=== PATIENT | male | born 1945 | race Caucasian/White ===

== ENCOUNTER 2020-11-05 15:21 | Emergency (ER) | payer OTHER, SELFPAY ==
--- NOTE | ~2020-11-05 | XR_ITS ---
EXAMINATION: XR CHEST CLINICAL INFORMATION: Covid infection. Cough. COMPARISON: None TECHNIQUE: Frontal view of the chest was obtained. FINDINGS: The cardiac and mediastinal contours are normal. The lungs are clear. There is no pleural effusion or pneumothorax. There are degenerative changes of the spine and shoulders. XR/XR chest 1V IMPRESSION: No evidence for acute disease in the chest.
[2020-11-05 15:39] VITALS: BP 149/66; BP 150/80; PULSE 101; PULSE 106; RESP 18; TEMP 37.1; O2SAT 94; O2SAT 95
--- NOTE | 2020-11-05 15:55 | ECG_ITS ---
Test Reason : CHEST PAIN Blood Pressure : / mmHG Vent. Rate : 089 BPM Atrial Rate : 089 BPM P-R Int : 130 ms QRS Dur : 070 ms QT Int : 350 ms P-R-T Axes : 074 050 049 degrees QTc Int : 425 ms Sinus rhythm with Premature atrial complexes Otherwise normal ECG When compared with ECG of 28-SEP-2016 13:11, Premature atrial complexes are now Present Referred By: Nacho Farley Electronically Signed By:HALIMA TITUS
--- NOTE | 2020-11-05 15:58 | ED_ITS ---
HPI - General Adult General Chief complaint: Upper Respiratory Symptoms Stated complaint: +COVID,+VACC,SOB Time Seen by Provider: 11/05/20 15:26 Source: patient Mode of arrival: ambulatory Limitations: no limitations History of Present Illness HPI narrative: 75-year-old male who who is COVID positive who presents emergency department for evaluation of shortness of breath and an O2 saturation of 90% on room air. The patient states that he has been sick for approximately 1 week. He states these had fever with a temperature as high as 101? F at home. The states that he has had a cough which is productive of brown to orange thick sputum. He he has had 2-3 episodes of loose ?soupy and ?diarrheal stool the pas t 6 days. He states he has had no appetite but he has been able to drink water. States that he initially lost his sense of taste and smell but he states that this is returned. He denied chest pain or shortness of breath but he has been experiencing dyspnea on exertion. He denied myalgias or arthralgias. He states that he is having fatigue. The patient's daughters are nurses in the did check the patient's O2 saturation was 90% on room air. The family called the patient's PCP and the patient was advised to go to the emergency department for evaluation. Related Data Allergies Allergy/AdvReac Type Severity Reaction Status Date / Time No Known Allergies Allergy Verified 11/05/20 15:38 [No Known Allergies*] Review of Systems Review of Systems: Yes all other systems are reviewed and are negative [facility] Past Medical History [facility] Narrative: Past medical history: Diabetes mellitus, stroke, kidney stones, COVID-19 positive prior to today's ED visit. Past surgical history: Appendectomy, kidney stone removal. Social history: The patient denies current tobacco use. He is a former smoker and quit 30 years ago. He states the smoked for 30 years. Patient states that he drinks alcohol on Fridays only and drinks only 1 beer. He denies drug use. Medical History COVID-19 Diabetes Kidney stone Stroke Social History Social History Alcohol intake: never Patient Tobacco Use Status: Former Tobacco user Use of substances other than those prescribed or required for medical reasons: No Advance Directives: No Advance Directives Information Provided: Yes Physical Exam Vital Signs: Vital Signs: Last Vital Signs Temp 98.8 F 11/05/20 15:39 Pulse 92 11/05/20 16:24 Resp 18 11/05/20 16:24 BP 130/69 11/05/20 16:24 Pulse Ox 96 11/05/20 16:24 Body Mass Index 0.2 Const: Other: Very pleasant and cooperative male patient, does not appear to be in distress, answers all questions appropriately, oriented to person and place. HENMT: Head: Yes normal to inspection, Yes normocephalic and Yes atraumatic Ears: external ears normal General nose exam: Normal external nose present Face and sinus: Yes normal facial exam Mouth: Normal oral and palatal mucosa present Throat: Yes posterior oropharynx normal Eyes: General: appearance normal, both eyes and all related structures Pupils: Equal, round and reactive pupils present Neck: Neck: Yes normal visual inspection, Yes no lymphadenopathy, Yes trachea midline and Yes supple Chest: Chest palpation & inspection: normal inspection of the chest and normal palpation of entire chest wall Resp: Effort & Inspection: normal respiratory effort and able to speak in complete sentences Auscultation: clear to auscultation bilaterally Cardio: Rate: regular rate Rhythm: regular rhythm Heart sounds: S1 normal heart sound present, S2 normal heart sound present and no murmurs GI: Inspection: Yes normal to inspection Palpation (GI): Soft to palpation, nontender and no guarding Auscultation: normal bowel sounds : General: Yes no CVA tenderness Back/Spine/Pelvis: Back: no CVA tenderness Skin: General skin exam: no rashes or lesions noted Neuro: Cranial nerves: Yes CN's II-XII intact bilaterally and Yes Equal, round and reactive pupils present Cognition (Neuro): normal cognition Motor exam (neuro): 5/5 motor strength present throughout Extrem: General: Yes normal to inspection Psych: Appearance: grossly normal Speech and movement: Normal speech and movement present Affect: normal affect Attitude: cooperative Thought process: Normal thought process present Thought content: Normal thought co ntent present Course Course Course Narrative: 75-year-old male who has been sick for approximately 1 week, tested positive for COVID-19 2-3 days prior to evaluation. The patient has been vaccinated with the COVID-19 Pfizer with 2 shots with the 2nd shot given in April of 2020 (approximately 6 months prior). Patient's presenting symptoms are consistent with COVID-19 infection. Patient is experiencing a productive cough with dyspnea on exertion. He had O2 saturations documented in the 90% range at home. Here in the emergency department the patient's vital signs reveal tachycardia with a pulse of 101. O2 saturation was 94% on room air. I did order laboratory evaluation, urinalysis, portable chest x-ray and EKG. The patient will be treated with normal saline IV x1 L 1751: The patient's chest x-ray revealed no evidence of pneumonia. CBC was normal. Comprehensive metabolic panel did reveal an elevated glucose of 144 but the patient is a diabetic. BUN was slightly elevated at 26 suggested he might be pre renal. Patient's LDH was normal at 150. Ferritin was slightly elevated at 356. Procalcitonin was negative. At this time I do not think that the patient has a bacterial pneumonia. Also I do not think patient has COVID pneumonia. I did discuss these findings with the patient and the patient's daughter Suzanne who was a nurse. The patient will be discharged home. Medical Decision Making Lab Data Result diagrams: 11/05/20 16:05 11/05/20 16:05 Labs: Lab Results 11/05/20 11/05/20 11/05/20 Range/Units 16:05 16:05 16:05 WBC 6.9 (4.8-10.8) X10*3/uL RBC 3.90 L (4.60-5.80) X10*6/uL Hgb 12.1 L (14.0-18.0) g/dl Hct 36.8 L (42-52) % MCV 94.4 (80-98) fL MCH 31.0 (27.0-33.0) pg MCHC 32.9 (31.0-36.0) g/dl RDW 13.3 (11.0-16.0) % Plt Count 243 (160-400) X10*3/uL MPV 10.5 (9.4-12.4) fL Immature Gran % (Auto) 0.4 (0.0-0.4) % Neut % (Auto) 72.1 (45-73) % Lymph % (Auto) 10.1 L (20-40) % [place] % (Auto) 15.3 H (2-11) % Eos % (Auto) 1.8 (0-4) % Baso % (Auto) 0.3 (0-2) % Lymph # (Auto) 0.7 L (1.2-4.9) X10*3/uL [place] # (Auto) 1.1 (0.1-1.2) X10*3/uL Eos # (Auto) 0.1 (0.0-0.4) X10*3/uL Baso # (Auto) 0.0 (0.0-0.2) X10*3/uL Abs Immat Gran (auto) 0.03 (0.00-0.03) X10*3/uL Absolute Neuts (auto) 4.9 (2.0-8.3) X10*3/uL Absolute Nucleated RBC 0.000 (0.0-0.012) X10*3/uL Nucleated RBC % (auto) 0.0 (0.0-0.2) /100WBC ESR (0-15) MM/HR PT (9.9-13.0) SEC INR (0.9-1.1) APTT (24.1-38.0) SEC Sodium 136 (135-145) mmol/L Potassium 4.2 (3.3-5.1) mmol/L Chloride 99 (96-108) mmol/L Carbon Dioxide 25 (22-29) mmol/L Anion Gap 16 (12-20) BUN 26 H (9-16) mg/dL Creatinine 1.35 (0.5-1.4) mg/dL Estim Creat Clear Calc 52.6 Estimated GFR 52 Random Glucose 144 H (60-115) mg/dL Lactic Acid (0.5-2.0) mmol/L Calcium 8.6 (8.4-10.2) mg/dL Ferritin 359 H (20-250) ng/mL Total Bilirubin 0.8 (0.0-1.0) mg/dL AST 24 (5-37) U/L ALT 20 (0-40) U/L Alkaline Phosphatase 64 (39-117) U/L Lactate Dehydrogenase 150 (118-273) U/L Troponin I High Sens (<3.5-35.0) ng/L Total Protein 7.1 (6.5-8.0) g/dL Albumin 4.0 (3.5-5.0) g/dL Lipase 27 (8-78) U/L Procalcitonin 0.09 ng/mL 11/05/20 11/05/20 11/05/20 Range/Units 16:05 16:05 16:05 WBC (4.8-10.8) X10*3/uL RBC (4.60-5.80) X10*6/uL Hgb (14.0-18.0) g/dl Hct (42-52) % MCV (80-98) fL MCH (27.0-33.0) pg MCHC (31.0-36.0) g/dl RDW (11.0-16.0) % Plt Count (160-400) X10*3/uL MPV (9.4-12.4) fL Immature Gran % (Auto) (0.0-0.4) % Neut % (Auto) (45-73) % Lymph % (Auto) (20-40) % [place] % (Auto) (2-11) % Eos % (Auto) (0-4) % Baso % (Auto) (0-2) % Lymph # (Auto) (1.2-4.9) X10*3/uL [place] # (Auto) (0.1-1.2) X10*3/uL Eos # (Auto) (0.0-0.4) X10*3/uL Baso # (Auto) (0.0-0.2) X10*3/uL Abs Immat Gran (auto) (0.00-0.03) X10*3/uL Absolute Neuts (auto) (2.0-8.3) X10*3/uL Absolute Nucleated RBC (0.0-0.012) X10*3/uL Nucleated RBC % (auto) (0.0-0.2) /100WBC ESR 81 H (0-15) MM/HR PT 14.4 H (9.9-13.0) SEC INR 1.3 H (0.9-1.1) APTT 31.4 (24.1-38.0) SEC Sodium (135-145) mmol/L Potassium (3.3-5.1) mmol/L Chloride (96-108) mmol/L Carbon Dioxide (22-29) mmol/L Anion Gap (12-20) BUN (9-16) mg/dL Creatinine (0.5-1.4) mg/dL Estim Creat Clear Calc Estimated GFR Random Glucose (60-115) mg/dL Lactic Acid 1.3 (0.5-2.0) mmol/L Calcium (8.4-10.2) mg/dL Ferritin (20-250) ng/mL Total Bilirubin (0.0-1.0) mg/dL AST (5-37) U/L ALT (0-40) U/L Alkaline Phosphatase (39-117) U/L Lactate Dehydrogenase (118-273) U/L Troponin I High Sens (<3.5-35.0) ng/L Total Protein (6.5-8.0) g/dL Albumin (3.5-5.0) g/dL Lipase (8-78) U/L Procalcitonin ng/mL 11/05/20 Range/Units 16:05 WBC (4.8-10.8) X10*3/uL RBC (4.60-5.80) X10*6/uL Hgb (14.0-18.0) g/dl Hct (42-52) % MCV (80-98) fL MCH (27.0-33.0) pg MCHC (31.0-36.0) g/dl RDW (11.0-16.0) % Plt Count (160-400) X10*3/uL MPV (9.4-12.4) fL Immature Gran % (Auto) (0.0-0.4) % Neut % (Auto) (45-73) % Lymph % (Auto) (20-40) % [place] % (Auto) (2-11) % Eos % (Auto) (0-4) % Baso % (Auto) (0-2) % Lymph # (Auto) (1.2-4.9) X10*3/uL [place] # (Auto) (0.1-1.2) X10*3/uL Eos # (Auto) (0.0-0.4) X10*3/uL Baso # (Auto) (0.0-0.2) X10*3/uL Abs Immat Gran (auto) (0.00-0.03) X10*3/uL Absolute Neuts (auto) (2.0-8.3) X10*3/uL Absolute Nucleated RBC (0.0-0.012) X10*3/uL Nucleated RBC % (auto) (0.0-0.2) /100WBC ESR (0-15) MM/HR PT (9.9-13.0) SEC INR (0.9-1.1) APTT (24.1-38.0) SEC Sodium (135-145) mmol/L Potassium (3.3-5.1) mmol/L Chloride (96-108) mmol/L Carbon Dioxide (22-29) mmol/L Anion Gap (12-20) BUN (9-16) mg/dL Creatinine (0.5-1.4) mg/dL Estim Creat Clear Calc Estimated GFR Random Glucose (60-115) mg/dL Lactic Acid (0.5-2.0) mmol/L Calcium (8.4-10.2) mg/dL Ferritin (20-250) ng/mL Total Bilirubin (0.0-1.0) mg/dL AST (5-37) U/L ALT (0-40) U/L Alkaline Phosphatase (39-117) U/L Lactate Dehydrogenase (118-273) U/L Troponin I High Sens 8.7 (<3.5-35.0) ng/L Total Protein (6.5-8.0) g/dL Albumin (3.5-5.0) g/dL Lipase (8-78) U/L Procalcitonin ng/mL ECG Data Interpretation: Sixteen 19: Normal sinus rhythm with a rate of 89, normal UT interval, QRS duration and QTC interval, no ST segment elevation, no ST segment depression, no PACs or PVCs, no T-wave abnormalities, this is a normal EKG. Discharge Plan Discharge Clinical Impression: COVID-19 virus infection Patient Disposition: Home, Self-Care Additional Instructions: Your COVID-19 test is positive. Your symptoms are consistent with a COVID inf ection. Your chest x-ray at this time did not reveal any pneumonia. Your O2 saturation remained between 94 % to 97%. This is reassuring and suggests that you do not have hypoxia (low oxygen in your blood. Your laboratory evaluation included a normal CBC, normal comprehensive metabolic panel, normal procalcitonin and a normal LDH. At this time I do not think you need to be hospitalized
[2020-11-05 16:19] LABS: MANUAL DIFF FLAG NO
[2020-11-05 16:24] VITALS: BP 130/69; PULSE 92; RESP 18; O2SAT 96
[2020-11-05 16:24] LABS: Basophils Percent Auto 0.3 % (0-2); Eosinophils Absolute Auto 0.1 X10*3/uL (0.0-0.4); Eosinophils Percent Auto 1.8 % (0-4); Hematocrit 36.8 % (42-52); Hemoglobin 12.1 g/dl (14.0-18.0); Imm Gran Abs Auto 0.03 X10*3/uL (0.00-0.03); Imm Gran Pct Auto 0.4 % (0.0-0.4); Lymphocytes Absolute Auto 0.7 X10*3/uL (1.2-4.9); Lymphocytes Percent Auto 10.1 % (20-40); Mean Corpuscular HGB Conc 32.9 g/dl (31.0-36.0); Mean Corpuscular Volume 94.4 fL (80-98); Mean Platelet Volume 10.5 fL (9.4-12.4); Monocytes Absolute Auto 1.1 X10*3/uL (0.1-1.2); Monocytes Percent Auto 15.3 % (2-11); Neutrophils Absolute Auto 4.9 X10*3/uL (2.0-8.3); Neutrophils Percent Auto 72.1 % (45-73); Platelet Count 243 X10*3/uL (160-400); Red Cell Distribution Width 13.3 % (11.0-16.0); White Blood Count 6.9 X10*3/uL (4.8-10.8)
[2020-11-05 16:36] LABS: INTERNATIONAL NORM RATIO 1.3 (0.9-1.1); Prothrombin Time 14.4 SEC (9.9-13.0)
[2020-11-05 16:38] LABS: Lactic Acid 1.3 mmol/L (0.5-2.0)
[2020-11-05 16:39] LABS: Partial Thromboplastin Time 31.4 SEC (24.1-38.0)
[2020-11-05] MEDS: 0.9 % Sodium Chloride 1,000 ML 999 ML IV (16:39)
[2020-11-05 16:51] LABS: Alanine Aminotransferase 20 U/L (0-40); Alkaline Phosphatase 64 U/L (39-117); Anion Gap 16 (12-20); Aspartate Amino Transferase 24 U/L (5-37); Bilirubin Total 0.8 mg/dL (0.0-1.0); Blood Urea Nitrogen 26 mg/dL (9-16); Calcium 8.6 mg/dL (8.4-10.2); Carbon Dioxide 25 mmol/L (22-29); Chloride 99 mmol/L (96-108); Creatinine Clr Calc Pharmacy 52.6; Estimated Glomerular Filt Rate 52; Glucose Random 144 mg/dL (60-115); Lactate Dehydrogenase 150 U/L (118-273); Lipase 27 U/L (8-78); Potassium 4.2 mmol/L (3.3-5.1); Sodium 136 mmol/L (135-145); Total Protein 7.1 g/dL (6.5-8.0); Troponin-I High Sensitivity 8.7 ng/L (<3.5-35.0)
[2020-11-05 17:09] LABS: Erythrocyte Sedimentation Rate 81 MM/HR (0-15)
[2020-11-05 17:10] LABS: Ferritin 359 ng/mL (20-250)
[2020-11-05 17:12] LABS: Procalcitonin 0.09 ng/mL
[2020-11-05 17:51] VITALS: BP 142/69; PULSE 88; RESP 18; TEMP 36.7; O2SAT 98
[2020-11-05 17:55] VITALS: O2SAT 98
[2020-11-05 21:37] LABS: Influenza A PCR NEGATIVE (Negative); Influenza B PCR NEGATIVE (Negative); Resp Syncy Virus RNA Qual PCR NEGATIVE (Negative); SARS COV2 PCR INHOUSE POSITIVE (Negative)
== END 2020-11-05 18:55 | disposition home or self-care (01) ==
PROVIDERS: Emergency Provider Emergency Medicine Emergency Medical Services; PCP Internal Medicine
DX: U07.1 COVID-19 (principal); R06.02 Shortness of breath; Z87.891 Personal history of nicotine dependence; Z79.899 Other long term (current) drug therapy
CPT/HCPCS: 0241U; 36415; 71045; 80053; 82728; 83605; 83615; 83690; 84145; 84484; 85025; 85610; 85652; 85730; 87040; 93005; 96360; 99284

== ENCOUNTER 2022-12-29 13:09 | Emergency (ER) | payer MEDICARE, SELFPAY ==
--- NOTE | ~2022-12-29 | XR_ITS ---
EXAMINATION: XR CHEST CLINICAL INFORMATION: Productive cough COMPARISON: Chest x-ray 11/05/2020 TECHNIQUE: 2 views of the chest were obtained. FINDINGS: No significant abnormality is noted involving the heart, lungs, mediastinum, bony thorax or soft tissues. XR/XR chest 2V IMPRESSION: Unremarkable chest examination.
[2022-12-29 13:11] VITALS: BP 153/72; PULSE 105; RESP 18; TEMP 36; O2SAT 98; BMI 26.6
--- NOTE | 2022-12-29 13:11 | ED.GENADULT ---
HPI - General Adult General Chief complaint: General Medical Stated complaint: Diff breathing Time Seen by Provider: 12/29/22 13:23 Source: patient and family Mode of arrival: ambulatory Limitations: no limitations History of Present Illness HPI narrative: Patient comes to the emergency room complaining of cough and burning sensation in the lungs with deep inspirations. Patient states that yesterday, he returned from [place] from a trip. Patient states that he has been coughing greenish looking sputum. Patient denies fever chills, no chest pain. Patient states that he has shortness of breath with exertion. No nausea vomiting or diarrhea. Patient denies any lower extremity pain or swelling. Related Data Allergies Allergy/AdvReac Type Severity Reaction Status Date / Time No Known Allergies Allergy Verified 12/29/22 13:15 [No Known Allergies*] Review of Systems Review of Systems: Constitutional : No Weight loss, No Fever, No Chills, No Night Sweats, No Fatigue, No Malaise ENT/Mouth : No Hearing loss, No Ear Pain, No Nasal Congestion, No Sinus Pain, No Hoarseness, No sore throat, No Rhinorrhea, No Swallowing Difficulty Eyes: No Eye Pain, No Swelling, No Redness, No Foreign Body, No Discharge, No Vision Changes Cardiovascular : No Chest Pain, No SOB, No Dyspnea on Exertion, No Orthopnea, No Edema, No Palpitations Respiratory : Complaining of productive sputum, burning sensation in both lungs on inspiration or with walking cough No Wheezing, No Smoke Exposure, No Dyspnea Gastrointestinal : No Nausea, No Vomiting, No Diarrhea, No Constipation, No abdominal Pain, No Hematochezia, No Melena Genitourinary : no irregular bleeding, No Dysuria, No Urinary Frequency, No Hematuria, No Urinary Incontinence, No Urgency, No Flank Pain, No Urinary Flow Changes, No Hesitancy Musculoskeletal : No joint pain, No Myalgias, No Joint Swelling Skin : No Skin Lesions, No rash Neuro : No Weakness, No Numbness, No Paresthesias, No Loss of Consciousness, No Dizziness, No Headache Psych : No Anxiety/Panic, No Depression, No SI/HI/AH/VH, No Social Issues, Heme/Lymph: No Bruising, No Bleeding,No Lymphadenopathy Endocrine : No Polyuria, No Polydipsia, No Temperature Intolerance PMFSH Past Medical History Medical History COVID-19 Stroke Kidney stone Diabetes Social History Alcohol intake: never Patient Tobacco Use Status: Former Tobacco user Advance Directives: No Advance Directives Information Provided: No Physical Exam ED Vital Signs: Vital Signs - 24 hr 12/29/22 13:11 Temperature 96.8 F Pulse Rate 105 H Respiratory Rate 18 Blood Pressure 153/72 H Pulse Oximetry 98 Oxygen Delivery Method Room Air BMI result Body Mass Index 26.6 Const Other: Appearance: Alert. Oriented X3. No acute distress. Well appearing Eyes: Pupils equal, round and reactive to light. ENT: Pharynx normal. Neck: Normal inspection. Neck supple. No lymph nodes noted. No crepitus CVS: Normal heart rate and rhythm. Pulses normal. Normal S1 and S2 Respiratory: No respiratory distress. Bilateral friction rubs in lower lobes, no rales or crackles, good air movement, no wheezing. Oxygen saturation 99% on room air Abdomen: Soft and nontender. No rigidity. No distention. Skin: Skin warm and dry. Normal skin color. Normal skin turgor. Extremities: No lower extremity edema. No Lacerations. No Rash Neuro: Oriented X 3. No motor deficit. No sensory deficit. Moving all extremities. No slurred speech. CN 2 through 12 grossly intact Psych: calm, cooperative, normal affect Course Course Course Narrative: This is a rapid medical exam: Additional HPI, ROS, PE not included below will be deferred to primary provider. Patient is a 77-year-old male presenting to the ED with complaint of shortness of breath, pain to his lower lungs with deep inspiration. States he recently flew back from [place] and symptoms began in the airport on return Monday night. Reports productive cough but denies fevers. Denies dizziness or chest pain. Plan: swab for flu/RSV/covid, CXR Medical Decision Making Medical Decision Making MDM Narrative: -interpretation of chest x-ray: No pneumonia -on physical exam, patient has bilateral friction rubs, most likely indicative of a viral infection -wells PE score of 0. -I discussed with the patient that he tested positive for COVID. Patient has no oxygen desaturation, no respiratory distress. -I discussed with the patient starting Paxlovid versus staying at home and treating symptomatically. Patient and his family decided to only treat symptomatically -I discussed with the patient signs and symptoms of when to return to the emergency room. -patient states that he has plenty of ibuprofen and Tylenol at home Differential Diagnosis Differential Diagnoses: The differential diagnosis associated with the presentation includes (Viral URI, COVID, influenza, RSV) Lab Data MDM Lab Attestation statement: I reviewed the patient's lab results. Labs: Lab Results 12/29/22 Range/Units 13:32 Influenza Type A (PCR) NEGATIVE (Negative) Influenza Type B (PCR) NEGATIVE (Negative) RSV RNA Qual (PCR) NEGATIVE (Negative) SARS-CoV-2 RNA (RT-PCR) POSITIVE A (Negative) Discharge Plan Discharge Clinical Impression: COVID-19 virus infection Patient Disposition: Home, Self-Care Instructions: COVID-19 (Coronavirus Disease 2019) (ED) Additional Instructions: Please follow-up with your primary care physician tomorrow. If you have any worsening or new symptoms, please return to the emergency room or call 911
[2022-12-29 14:20] LABS: Influenza A PCR NEGATIVE (Negative); Influenza B PCR NEGATIVE (Negative); Resp Syncy Virus RNA Qual PCR NEGATIVE (Negative); SARS COV2 PCR INHOUSE POSITIVE (Negative)
== END 2022-12-29 14:42 | disposition home or self-care (01) ==
PROVIDERS: Registered Nurse Emergency; Emergency Provider Emergency Medicine; PCP Internal Medicine
DX: U07.1 COVID-19 (principal); R05.9 Cough, unspecified
CPT/HCPCS: 0241U; 71046; 99282; 99283

== ENCOUNTER 2023-05-19 10:44 | Emergency (ER) | payer MEDICARE, SELFPAY ==
--- NOTE | ~2023-05-19 | CT_ITS ---
EXAMINATION: CT ABDOMEN AND PELVIS WITHOUT CONTRAST CLINICAL INFORMATION: Right-sided flank pain COMPARISON: Renal ultrasound 02/10/[address] abdomen pelvis 04/23/2020 TECHNIQUE: Multidetector volumetric imaging was performed from the superior aspect of the liver through the pubic symphysis. Sagittal and coronal reformatted images were obtained on the technologist's workstation. This CT examination was performed using dose optimization techniques as appropriate, variously including the following: *Automated exposure control *Adjustment of mA and/or kV according to patient size (this includes techniques or standardized protocols for targeted exams where dose is matched to indication/reason for exam; i.e. extremities or head) *Use of iterative reconstruction technique DLP: 499 mGy-cm FINDINGS: Visualized lung bases demonstrate mild dependent atelectasis. The liver is normal in size. Small gallstones are present within an otherwise unremarkable appearing gallbladder. The pancreas, spleen and adrenal glands are unremarkable. Symmetrically sized kidneys. There are a few small nonobstructing renal calculi of the left kidney, largest is located within the lower pole and measures approximately 4 mm. Only a single 2 mm nonobstructing calculus is noted within the right kidney. There is no hydronephrosis of either kidney. Normal caliber loops of small and large bowel. Mild colonic stool burden. Normal caliber abdominal aorta demonstrating moderate atherosclerotic disease. No retroperitoneal lymphadenopathy. The bladder is normal in appearance. The prostate gland is at the upper limits of normal in size. Tiny fat-containing inguinal hernias bilaterally. No gross free pelvic fluid. No inguinal lymphadenopathy. Diffuse osteopenia. Moderate to severe degenerative changes of the spine. CT/CT abdomen pelvis wo IV con IMPRESSION: 1. Tiny bilateral nonobstructing renal calculi. No hydronephrosis. 2. Cholelithiasis. Fleischner guidelines were followed.
[2023-05-19 10:52] VITALS: BP 122/62; PULSE 99; RESP 18; TEMP 36.6; O2SAT 97; BMI 27.4
--- NOTE | 2023-05-19 10:57 | ED.GENADULT ---
HPI - General Adult General Chief complaint: Back Pain/Injury Stated complaint: kidney pain Time Seen by Provider: 05/19/23 12:44 Source: patient and family Mode of arrival: ambulatory Limitations: no limitations History of Present Illness HPI narrative: 78 y/o male with history of DM2, nephrolithiasis presents today for the evaluation of R flank pain for 1 week. Last kidney stone was August 2022 and he was able to pass on his own. He states that he awoke with the pain 1 week ago. The day before he was doing yardwork and helped his turn a mattress. Pain is exacerbated with rest, most promiment at night when laying down. Able to ambulate without difficulty or pain. complaint: R flank pain Onset (ago): week(s) Radiation: non-radiation Severity: severe Severity scale (1-10): 10 Quality: burning, stabbing and aching Pain Consistency: intermittent Relieving factors: other (laying supine) Associated symptoms: denies other symptoms Related Data Allergies Allergy/AdvReac Type Severity Reaction Status Date / Time No Known Allergies Allergy Verified 05/19/23 10:52 [No Known Allergies*] Review of Systems Review of Systems: Yes all other systems are reviewed and are negative [facility] Past Medical History Medical History COVID-19 Stroke Kidney stone Diabetes Social History Social History Alcohol intake: never Patient Tobacco Use Status: Former Tobacco user Advance Directives: No Advance Directives Information Provided: Yes Physical Exam ED Vital Signs: Vital Signs - 24 hr 05/19/23 10:52 05/19/23 14:31 Temperature 97.9 F 98 F Pulse Rate 99 97 Respiratory Rate 18 18 Blood Pressure 122/62 130/59 L Pulse Oximetry 97 Oxygen Delivery Method Room Air Room Air BMI result Body Mass Index 27.4 Appearance: Alert. Oriented X3. No acute distress. Head: normocephalic, atraumatic. Neck: Normal inspection. Neck supple. Normal range of motion without pain. CVS: Normal heart rate and rhythm. Pulses normal. Respiratory: No respiratory distress. Breath sounds normal. Abdomen: Soft and nontender. +BS x4 Back: tenderness to palpation of R flank. Limitated lumbar flexion and extension. No limitatoin with rotational movement. Skin: Skin warm and dry. Normal skin color. Normal skin turgor. No rashes. Extremities: No lower extremity edema. No joint swelling. Neuro/psych: Oriented X 3. Nonfocal. Course Course Course Narrative: This is an RME: Additional HPI, ROS, PE not included below will be deferred to primary provider. Patient is a 78-year-old male who presents emergency department for evaluation right flank/low back pain intermittent in nature while at rest and with movement. At times exacerbated with movement. Denies genitourinary symptoms. Reports history of kidney stone though does admit that this pain does feel different than prior kidney stones. Plan: Labs, urinalysis Medications Administered Discontinued Medications Generic Name Dose Route Start Last Admin Trade Name Jordan PRN Reason Stop Dose Admin Acetaminophen 975 mg 05/19/23 15:25 05/19/23 16:21 Acetaminophen 325 Mg Tablet PO 05/19/23 15:26 975 mg ONCE ONE Administration Lidocaine 1 patch 05/19/23 15:21 05/19/23 16:21 Lidocaine 4 % Patch Adh..Patch TRANSDERMA 05/19/23 15:22 1 patch ONCE ONE Administration Protocol Medical Decision Making Medical Decision Making MDM Narrative: 78 y/o male with history of DM2, nephrolithiasis presents today for the evaluation of R flank pain for 1 week. He awoke with the pain and day before onset he was doing yardwork and helping his turn a mattress. Patient is comfortable when not laying down, no pain when sitting or standing. Vital signs are stable. Pain is most likely muscular in nature. Ordered CT scan to evaluated for nephrolithiasis. Awaiting formal reading of CT scan. Scan shows nonobstructing kidney stones within the kidney, however it is unlikely that this is causing his pain. High suspicion for lumbar muscular sprain. Ordered tylenol and lidocaine patch for relief. UA is negative for hematuria. Low clinical suspicion for nephrolithiasis. On evaluation, patient states that he is comfortable and without pain. Reports that the pain is only present with certain movements. Highly suspect that he is experiencing muscular pain. No red flag symptoms at this time. Comfortable to discharge home with symptomatic treatment. Differential Diagnosis Differential Diagnoses: The differential diagnosis associated with the presentation includes lumbar muscular sprain/strain, nephrolithiasis, pyelonephritis Admission/Observation Consideration of admission/observation: Escalation of care including admission/observation considered Lab Data MDM Lab Attestation statement: I reviewed the patient's lab results. Patient takes metformin daily, glucose in urine likely due to this. 05/19/23 11:27 05/19/23 11:27 Labs: Lab Results 05/19/23 Range/Units 11:27 WBC 8.1 (4.8-10.8) X10*3/uL RBC 4.20 L (4.60-5.80) X10*6/uL Hgb 13.2 L (14.0-18.0) g/dl Hct 39.8 L (42.0-52.0) % MCV 94.8 (80.0-98.0) fL MCH 31.4 (27.0-33.0) pg MCHC 33.2 (31.0-36.0) g/dl RDW 13.7 (11.0-16.0) % Plt Count 226 (160-400) X10*3/uL MPV 10.4 (9.4-12.4) fL Immature Gran % (Auto) 0.4 (0.0-0.4) % Neut % (Auto) 71.5 (45-73) % Lymph % (Auto) 14.9 L (20-40) % [place] % (Auto) 10.8 (2-11) % Eos % (Auto) 2.0 (0-4) % Baso % (Auto) 0.4 (0-2) % Lymph # (Auto) 1.2 (1.2-4.9) X10*3/uL [place] # (Auto) 0.9 (0.1-1.2) X10*3/uL Eos # (Auto) 0.2 (0.0-0.4) X10*3/uL Baso # (Auto) 0.0 (0.0-0.2) X10*3/uL Abs Immat Gran (auto) 0.03 (0.00-0.03) X10*3/uL Absolute Neuts (auto) 5.8 (2.0-8.3) x10*3/uL Absolute Nucleated RBC 0.000 (0.0-0.012) X10*3/uL Nucleated RBC % (auto) 0.0 (0.0-0.2) /100WBC Sodium 137 (135-145) mmol/L Potassium 4.8 (3.3-5.1) mmol/L Chloride 103 (96-108) mmol/L Carbon Dioxide 26 (22-29) mmol/L Anion Gap 13 (12-20) BUN 24 H (9-16) mg/dL Creatinine 1.17 (0.5-1.4) mg/dL Estim Creat Clear Calc 52.5 Estimated GFR > 60 Random Glucose 229 H (60-115) mg/dL Calcium 9.8 D (8.4-10.2) mg/dL Total Bilirubin 0.5 (0.0-1.0) mg/dL AST 16 (5-37) U/L ALT 17 (0-40) U/L Alkaline Phosphatase 63 (39-117) U/L Total Protein 7.8 (6.5-8.0) g/dL Albumin 4.2 (3.5-5.0) g/dL Lipase 22 (8-78) U/L Urine Color Yellow Urine Appearance Clear Urine pH 5.5 (5.0-9.0) Ur Specific [place] 1.010 (1.005-1.025) Urine Protein Negative (Neg-Trace) mg/dL Urine Glucose (UA) 100 H (Negative) mg/dL Urine Ketones Negative (Negative) mg/dL Urine Blood Negative (Negative) Urine Nitrite Negative (Negative) Ur Leukocyte Esterase Negative (Negative) Independent Interpretation I performed an independent interpretation of an: CT Scan Interpretation: no hydro, no ureteral stones or obstruction, agree w/ radiology read Radiology Impression Discussion of test interpretation with radiology: I have reviewed the radiologist's reading. Radiologist Impression: EXAMINATION: CT ABDOMEN AND PELVIS WITHOUT CONTRAST CLINICAL INFORMATION: Right-sided flank pain COMPARISON: Renal ultrasound 02/10/[address] abdomen pelvis 04/23/2020 TECHNIQUE: Multidetector volumetric imaging was performed from the superior aspect of the liver through the pubic symphysis. Sagittal and coronal reformatted images were obtained on the technologist's workstation. This CT examination was performed using dose optimization techniques as appropriate, variously including the following: *Automated exposure control *Adjustment of mA and/or kV according to patient size (this includes techniques or standardized protocols for targeted exams where dose is matched to indication/reason for exam; i.e. extremities or head) *Use of iterative reconstruction technique DLP: 499 mGy-cm FINDINGS: Visualized lung bases demonstrate mild dependent atelectasis. The liver is normal in size. Small gallstones are present within an otherwise unremarkable appearing gallbladder. The pancreas, spleen and adrenal glands are unremarkable. Symmetrically sized kidneys. There are a few small nonobstructing renal calculi of the left kidney, largest is located within the lower pole and measures approximately 4 mm. Only a single 2 mm nonobstructing calculus is noted within the right kidney. There is no hydronephrosis of either kidney. Normal caliber loops of small and large bowel. Mild colonic stool burden. Normal caliber abdominal aorta demonstrating moderate atherosclerotic disease. No retroperitoneal lymphadenopathy. The bladder is normal in appearance. The prostate gland is at the upper limits of normal in size. Tiny fat-containing inguinal hernias bilaterally. No gross free pelvic fluid. No inguinal lymphadenopathy. Diffuse osteopenia. Moderate to severe degenerative changes of the spine. CT/CT abdomen pelvis wo IV con IMPRESSION: 1. Tiny bilateral nonobstructing renal calculi. No hydronephrosis. 2. Cholelithiasis. Fleischner guidelines were followed. Independent Historian Clinical information obtained from an independent historian. History obtained from or confirmed by: Spouse External Record Review External record reviewed: Prior outpatient labs Prescription Management I considered prescription management with: Pain Medication Chronic Conditions Patient?s care impacted by: Diabetes Critical Care Time Critical Care Time Critical Care Time: No Discharge Plan Discharge Clinical Impression: Strain of lumbar region Qualifiers: Encounter type: initial encounter Qualified Code(s): S39.012A - Strain of muscle, fascia and tendon of lower back, initial encounter Patient Disposition: Home, Self-Care Instructions: Low Back Strain (ED), Acute Low Back Pain (ED), Lower Back Exercises (ED) Additional Instructions: Labs and imaging performed today were reassuring. Pain is likely muscular in nature and not due to kidney stones. Symptomatic treatment with rest, heat, and lidocaine patches for relief. If you develop new or worsening symptoms call 911 or come back to the ER for further evaluation. Referrals: Amanda Castro MD [Primary Care Provider] - Print Language: Thai
[2023-05-19 11:31] LABS: MANUAL DIFF FLAG NO
[2023-05-19 11:35] LABS: Basophils Percent Auto 0.4 % (0-2); Eosinophils Absolute Auto 0.2 X10*3/uL (0.0-0.4); Hematocrit 39.8 % (42.0-52.0); Hemoglobin 13.2 g/dl (14.0-18.0); Imm Gran Abs Auto 0.03 X10*3/uL (0.00-0.03); Imm Gran Pct Auto 0.4 % (0.0-0.4); Lymphocytes Absolute Auto 1.2 X10*3/uL (1.2-4.9); Lymphocytes Percent Auto 14.9 % (20-40); Mean Corpuscular HGB Conc 33.2 g/dl (31.0-36.0); Mean Corpuscular Hemoglobin 31.4 pg (27.0-33.0); Mean Corpuscular Volume 94.8 fL (80.0-98.0); Mean Platelet Volume 10.4 fL (9.4-12.4); Monocytes Absolute Auto 0.9 X10*3/uL (0.1-1.2); Monocytes Percent Auto 10.8 % (2-11); Neutrophils Absolute Auto 5.8 x10*3/uL (2.0-8.3); Neutrophils Percent Auto 71.5 % (45-73); Platelet Count 226 X10*3/uL (160-400); Red Cell Distribution Width 13.7 % (11.0-16.0); White Blood Count 8.1 X10*3/uL (4.8-10.8)
[2023-05-19 11:38] LABS: Appearance Urine Clear; Color Urine Yellow; Glucose Urine UA 100 mg/dL (Negative); Leukocyte Esterase Urine Negative (Negative); Nitrite Urine Negative (Negative); PH 5.5 (5.0-9.0); Urine Blood Negative (Negative); Urine Ketones Negative (Negative); Urine Protein Negative (Neg-Trace)
[2023-05-19 11:50] LABS: Alanine Aminotransferase 17 U/L (0-40); Albumin Level 4.2 g/dL (3.5-5.0); Alkaline Phosphatase 63 U/L (39-117); Anion Gap 13 (12-20); Aspartate Amino Transferase 16 U/L (5-37); Bilirubin Total 0.5 mg/dL (0.0-1.0); Blood Urea Nitrogen 24 mg/dL (9-16); Calcium 9.8 mg/dL (8.4-10.2); Carbon Dioxide 26 mmol/L (22-29); Chloride 103 mmol/L (96-108); Creatinine Clr Calc Pharmacy 52.5; Estimated Glomerular Filt Rate > 60; Glucose Random 229 mg/dL (60-115); Lipase 22 U/L (8-78); Potassium 4.8 mmol/L (3.3-5.1); Sodium 137 mmol/L (135-145); Total Protein 7.8 g/dL (6.5-8.0)
[2023-05-19 14:31] VITALS: BP 130/59; PULSE 97; RESP 18; TEMP 36.6
[2023-05-19] MEDS: Acetaminophen 325 MG TABLET 975 MG PO (16:21)
[2023-05-19] MEDS: Lidocaine 4 % Patch ADH..PATCH 1 PATCH TRANSDERMA (16:21)
[2023-05-19 17:02] VITALS: BP 132/60; PULSE 94; RESP 18; TEMP 36.7; O2SAT 99
== END 2023-05-19 17:02 | disposition home or self-care (01) ==
PROVIDERS: Nurse Practitioner Family; Emergency Provider Emergency Medicine Emergency Medical Services; PCP Internal Medicine
DX: S39.012A Strain of muscle, fascia and tendon of lower back, initial encounter (principal); E11.9 Type 2 diabetes mellitus without complications; Z86.73 Personal history of transient ischemic attack (TIA), and cerebral infarction without residual deficits; Z87.442 Personal history of urinary calculi; X58.XXXA Exposure to other specified factors, initial encounter; Y93.9 Activity, unspecified; Y92.9 Unspecified place or not applicable; Y99.9 Unspecified external cause status
CPT/HCPCS: 36415; 74176; 80053; 81003; 83690; 85025; 99283; 99284

== ENCOUNTER 2024-10-18 07:50 | Outpatient (AMB) | payer MEDICARE, SELFPAY ==
--- OUTSIDE RECORDS SUMMARY | 2024-10-18 07:52 | XMS_ITS | Encounter Summary ---
Author Organization [facility] Address [address] [place] [id number] Phone Care Team Providers Care Title Insurance Examiner Name Role Phone Pcp, Unknown Primary Care Provider Unavailabl e Encounter Details Date Type Department Care Team (Late st Contact Info) Description 04/27/2020 Procedure Pass [place] Admitting Dept - Virtual Department [address] [place] [address] Social History Tobacco Use Types Packs/Day Years Used Date Smoking Tobacco: Former Cigarettes Q uit: 04/28/1979 Smokeless Tobacco: Never Alcohol Use Standard Drinks/Week Comments Yes 0 (1 standard drink = 0.6 oz pur e alcohol) occasioanlly Sex and Gender Information Value Date Recorded Sex Assigned at Not on file Legal Sex Male 8:44 PM EDT Gender Identity Not on file Sexual Orientation Not on file documented as of this encounter Functional Status * Calculated C-SSRS Risk Score (Lifetime/Recent) Answer Date of Assessment Author No Risk Indicated 04/27/2020 12:14 PM EDT Sanjuana Logan nd, RN * [place] Suicide Severity Rating Scale (Screener/Recent Self-Report) Question Answer Date of Assessment Author 2. Non-Specific Active Suicidal Thoughts (Past 1 Month) No 04/27/2020 12:14 PM EDT David Pichardo RN documented as of this encounter Plan of Treatment Not on file documented as of this encounter Visit Diagnoses Not on filedocumented in this encounter Care Teams Title Insurance Examiner Relationship Specialty Start Date End Date Pcp, Unknown PCP - General 04/25/20 documented as of this encounter Additional Source Comments The information contained in this document represents components of the legal health record. It is not the complete legal health record.[facility]
--- OUTSIDE RECORDS SUMMARY | 2024-10-18 07:52 | XMS_ITS ---
Author Name [facility] Organization Unknown Care Team Organization Name Specialty Phone Email Start Date End Da te [facility] 12/14/2021 09/25/2023
--- OUTSIDE RECORDS SUMMARY | 2024-10-18 07:52 | XMS_ITS | Clinical Summary ---
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 03/25/19 23 Active meclizine (ANTIVERT) 25 mg tablet Take 1 Tablet by mouth every 8 hours as needed (Dizziness). 06/30/19 23 Active clotrimazole (LOTRIMIN) 1 % cream Use twice a day on affected areas x 2-4 weeks. 06/26/19 22 Active triamcinolone (KENALOG) 0.1 % cream Apply to affected area 2x/day for upto 2 weeks. 05/14/19 22 Active fluorouraciL (EFUDEX) 5 % cream Apply to affected area daily for 4-6 weeks 01/07/20 21 Active fluticasone propionate (FLONASE) 50 mcg/actuation nasal spray USE 2 SPRAYS INTO EACH NOSTRIL ONCE A DAY 03/05/19 21 Active tamsulosin (FLOMAX) 0.4 mg 24 hr capsule Take 1 capsule by mouth at bedtime. Take 30 mins after same meal every day. 12/24/19 16 Active blood sugar diagnostic (FreeStyle Lite Strips) test strip USE ONE STRIP TWICE A DAY 07/09/19 15 Active blood-glucose meter kit Use to test bs twice daily 01/18/20 11 Active FREESTYLE LANCETS MISC 1 Each 2 times daily. 01/18/20 11 Active MULTIVITAMIN ORAL Take by mouth. 03/17/19 09 Active SITagliptin phosphate (Januvia) 25 mg tablet Take 1 tablet (25 mg total) by mouth 1 (one) time each day. TAKE 1 TABLET BY MOUTH DAILY 90 tablet 1 02/27/19 25 Active metFORMIN (GLUCOPHAGE) 850 mg tablet TAKE ONE TABLET BY MOUTH THREE TIMES A DAY 270 tablet 1 04/16/19 25 Active clopidogreL (PLAVIX) 75 mg tablet Take 1 tablet (75 mg total) by mouth 1 (one) time each day. Active sacubitriL-valsar abbott (ENTRESTO) 24-26 mg per tabletIndications :Dilated cardiomyopathy (CMS/HCC V24, CMS/HCC V28) Take 1 tablet by mouth 2 (two) times a day. 60 each 11 07/31/19 25 026 Active furosemide (LASIX) 20 mg tabletIndications :Dilated cardiomyopathy (CMS/HCC V24, CMS/[facility] V28) Take 1 tablet (20 mg total) by mouth 1 (one) time each day if needed (swelling, shortness of breath). 60 tablet 3 07/31/19 25 Active metoprolol succinate (TOPROL-XL) 25 mg 24 hr tablet Take 0.5 tablets (12.5 mg total) by mouth 1 (one) time each day. Do not crush or chew. 45 tablet 3 08/22/19 25 Active dapagliflozin propanediol (Farxiga) 10 mg tablet Take 1 tablet (10 mg total) by mouth 1 (one) time each day. 90 tablet 1 09/12/19 25 Active atorvastatin (LIPITOR) 20 mg tablet TAKE ONE TABLET BY MOUTH EVERY DAY 90 tablet 1 10/17/19 25 Active glipiZIDE (GLUCOTROL XL) 2.5 mg 24 hr tablet TAKE ONE TABLET BY MOUTH EVERY DAY 90 tablet 1 10/17/19 25 Active atorvastatin (LIPITOR) 20 mg tablet TAKE ONE TABLET BY MOUTH EVERY DAY 90 tablet 1 04/16/19 25 025 Discontinued glipiZIDE (GLUCOTROL XL) 2.5 mg 24 hr tablet TAKE ONE TABLET BY MOUTH EVERY DAY 90 tablet 1 04/16/19 25 025 Discontinued Active Problems Problem Noted Date Diagnosed Date Unstable angina (CMS/[facility] V24, CMS/[facility] V28) 07/25 Chest pain 07/25/2024 Intracranial vascular disease 07/15/2024 Overview (07/15/2024): mod bilateral intracranial ICA stenosis, moderate right and mild left proximal cervical ICA stenosis severe stenosis of dominant left vertebral artery. Systolic congestive heart fa ilure (CMS/HCC V24, CMS/HCC V28) 07/15/2024 Dilated cardiomyopathy (CMS/HCC V24, CMS/HCC V28 ) 06/28/2024 Overview (08/08/2024): June 2024 - echocardiogram showing moderately reduced LV dysfunction LVEF 31%, global hypokinesis, no LV thrombus noted, preserved RV systolic function, no hemodynamically significant valvular disease Assessment & Plan (08/08/2024 10:02 AM EDT): Echocardiogram from June 2024 showed moderately reduced LV systolic function. Unclear etiology - given recent neurologic event and still lack of anginal symptoms will update echocardiogram and also obtain a coronary CTA. He appears compensated on exam and has symptomatic improvement on GDMT. Continue with dapagliflozin and metoprolol. Will switch lisinopril to Entresto and make his furosemide prn daily. Consider adding sprionolactone. We reviewed heart failure management including low-sodium diet, symptom surveillance, daily weights and medication compliance. The patient is aware they may take extra diuretic for intermittent evidence of mild congestive signs and symptoms. If the increase of frequency of as needed diuretic becomes more regular than they will make our office aware. If the patient has weight gain over 3lbs in one day or 5lbs over several days, they are aware to contact our office. With any severe or sustained symptoms, they are aware to contact EMS via 911 and go to the emergency room. Orders: Basic metabolic panel; Future sacubitriL-valsartan (ENTRESTO) 24-26 mg per tablet; Take 1 tablet by mouth 2 (two) times a day. CT Angio Coronary Fractional Flow Anlys/Model Gen (FFRCT); Future Transthoracic echocardiogram (TTE) complete with PRN contrast, bubble, strain, and 3D order panel; Future perflutren lipid microsphere (DEFINITY) 1.3 mL in sodium chloride 0.9% 8.7 mL injection furosemide (LASIX) 20 mg tablet; Take 1 tablet (20 mg total) by mouth 1 (one) time each day if needed (swelling, shortness of breath). CT Angio Heart w 3D Imaging/Function; Future CKD (chronic kidney disease) stage 2, GFR 60-89 ml/min 06/12/2024 Controlled type 2 diabetes m kari with chronic kidney disease, without long-term current use of insulin ([facility] V24, [facility] V28) 06/12/2024 Actinic keratoses 05/13/2021 COVID-19 virus infection 01/07/2021 Type 2 diabetes mellitus wit h diabetic neuropathy ([facility] V24, [facility] V28) 07/21/2015 Cerebral infarction ([facility] V24, [facility] V28) 0 06/20/2014 Overview (08/08/2024): History of old CVA June 2024 - dizziness and slurred speech with concern for posterior circulation TIA with CT showing no large vessel occlusion with stenosis of bilateral proximal cervical ICAs moderate on right and mild on left, moderate stenosis of bilateral intracranial ICAs and severe stenosis of dominant left vertebral artery at its origin. June 2024 - brain MRI did not show evidence of acute/subacute infarction with only chronic microvascular ischemic changes. 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 Assessment & Plan (08/08/2024 10:02 AM EDT): No new or worsening neurologic symptoms. Continue with aspirin, clopidogrel, atorvastatin, metoprolol, dapagliflozin, furosemide and Entresto. We discussed risk reduction through lifestyle choices including healthy diet, routine exercise and weight management. Allergic rhinitis 08/06/2013 Finger joint swelling 09/21/2011 Kidney stone 08/10/2010 Overview (12/13/2023): Dr. Abrams, also flomax helped mild BPH symptoms Essential hypertension, benign 11/02/2005 Assessment & Plan (08/08/2024 10:02 AM EDT): Controlled. Continue with Entresto, furosemide, metoprolol. Pure hypercholesterolemia 11/02/2005 Assessment & Plan (08/08/2024 10:02 AM EDT): Continue with atorvastatin. Encounters Date Type Department Care Team Description 10/04/2024 7:00 AM EDT Ancillary Procedure [facility] [address] [place] [address] Dilated cardiomyopathy (CMS/HCC V24, CMS/HCC V28) 09/26/2024 Telephone [facility] [address] [place] [address] Marcos Crum NP 09/17/2024 1:15 PM EDT Office Visit Adult Medicine [address] [phone] Amanda Castro MD Controlled type 2 diabetes mellitus with stage 2 chronic kidney disease, without long-term current use of insulin (CMS/HCC V24, CMS/HCC V28) (Primary Dx); CKD (chronic kidney disease) stage 2, GFR 60-89 ml/min; Essential hypertension, benign; Pure hypercholesterolemia; Hyperkalemia 09/11/2024 Telephone [facility] [address] [place] [address] Morris Nj MD 08/21/2024 Telephone [facility] [address] [place] [address] Morris Nj MD 08/19/2024 Telephone [facility] [address] [place] [address] Morris Nj MD 08/16/2024 Telephone [facility] [address] [phone] Amanda Castro MD 08/15/2024 Telephone Adult [facility] [address] [phone] Amanda Castro MD 08/12/2024 Telephone [facility] [address] [place] [address] Marcos Crum NP 08/08/2024 Telephone [facility] [address] [place] [address] Marcos Crum NP 08/07/2024 Telephone [facility] [address] [place] [address] Marcos Crum NP 07/30/2024 9:40 AM EDT Office Visit [facility] [address] [place] [address] Radames, LATIA Rodríguez Dilated cardiomyopathy (CMS/HCC V24, CMS/HCC V28) (Primary Dx); Abnormal findings on diagnostic imaging of heart and coronary circulation; Essential hypertension, benign; Pure hypercholesterolemia; 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, unspecified blood vessel laterality (CMS/HCC V24, CMS/HCC V28) from Last 3 Months Immunizations Name Administration Dates Next Due Influenza trivalent, 0.5mL ( Fluad) 65yo and older 01/17/2024,01/25/2022,01/07/2021,11/03,10/20/2017,10/31/2016,10/23/2014 Influenza trivalent, 0.5mL, preservative free (Fluarix; FluLaval; Fluzone) ages 6mo and older (Afluria) 3 years and older 01/14/2016,12/11/2013,11/18/2011,03/22,01/08/2010,10/17/2008 Pneumococcal conjugate 20 va lent (Prevnar 20, PCV 20) 2mo and older 05/26/2022 Pneumococcal polysaccharide 23 valent (Pneumovax 23) 2yo and older 04/29/2008 Td, Unspecified 05/22/2002 Tdap Tetanus diptheria acell ular pertussis (Boostrix; Adacel) 7yo and older 09/26/2022 Surgical History Surgery Date Site/Laterality Comments KNEE ARTHROSCOPY PROCEDURE: [place] ARTHROSCOPY KNEE DIAGNOSTIC W/WO SYNOVIAL BX SPX; COMMENT: x 2 (Betty/Jonathan) now Dr. Balderas APPENDECTOMY PROCEDURE: HISTORICAL APPENDECTOMY COLONOSCOPY 11/2003 PROCEDURE: HISTORICAL COLONOSCOPY; COMMENT: normal COLONOSCOPY 2014 PROCEDURE: HISTORICAL COLONOSCOPY; COMMENT: normal Medical History Medical History Date Comments Uncontrolled diabetes mellitus 01/12/2008 D X:Uncontrolled diabetes mellitus Kidney stone 08/10/2010 DX:Kidney stone Finger joint swelling 09/21/2011 DX:Finger joint swelling Allergic rhinitis 08/06/2013 DX:Allergic rh initis Type 2 diabetes mellitus wit h diabetic neuropathy (CMS/HCC V24, CMS/HCC V28) 07/21/2015 DX:Type 2 diabet es mellitus with diabetic neuropathy ([facility]) S/P left unicompartmental kn ee replacement 04/06/2017 DX:S/P left unicompartmental knee replacement; COMMENT: Dr. Hsu Dyspnea on exertion Hyperlipidemia Family History Medical History Relation Name Comments Diabetes Mother Relation Name Status Comments Brother Alive alcoholism, ?li aristides, DMII Daughter 1 Alive A&W Daughter 2 Alive A&W Father smoker, lung pr oblems?, ?prostate ca Mother Alive DMII Sister 1 Alive A&W Sister 2 Alive A&W Son Alive A&W Social History Tobacco Use Types Packs/Day Years Used Date Smoking Tobacco: Former Cigarettes Q uit: 12/07/2004 Smokeless Tobacco: Never Tobacco Cessation:Counseling Given: Not Answered Alcohol Use Standard Drinks/Week Comments Yes 0 (1 standard drink = 0.6 oz pur e alcohol) Sex and Gender Information Value Date Recorded Sex Assigned at Not on file Legal Sex Male 12:02 PM EST Gender Identity Not on file Sexual Orientation Not on file Obstetrics History Last Filed Vital Signs Vital Sign Reading Time Taken Comments Blood Pressure 127/77 10/04/2024 7:02 AM EDT Pulse 87 07/30/2024 9:24 AM EDT Temperature 36.3 C (97.3 F) 09/17/2024 1:26 PM EDT Respiratory Rate 12 09/17/2024 1:26 PM EDT Oxygen Saturation 96% 07/30/2024 9:24 AM EDT Inhaled Oxygen Concentration - - Weight 72.1 kg (159 lb) 10/04/2024 7:02 AM EDT Height 170.2 cm (5' 7 ) 10/04/2024 7:02 AM EDT Body Mass Index 24.9 10/04/2024 7:02 AM EDT Plan of Treatment Upcoming Encounters Date Type Department Care Team (Late st Contact Info) Description 06/11/2025 2:00 PM EDT Office Visit Nephrology - [facility] [address] [place] [address] Robinson Menendez MD [address] [place] [address] Health Maintenance Due Date Last Done Comments Zoster Vaccines (1 of 2) 01/31/1964 RSV Immunization Adult Patients (1 - 1-dose 75+ series) 01/31/2020 COVID-19 Vaccine (3 - Pfizer risk series) 05/04/2020 04/06/2020, 03/16/2020 Medicare Annual Wellness Visit 01/15/2022 Social Influencers of Health Screening 01/15/2022 Depression Screening 02/07/2024 03/01/2023 Diabetes: Annual Urine Albumin-Creatinine Ratio (uACR) 02/18/2024 02/17/2023 Falls Risk Assessment 03/01/2024 03/01/2023 Diabetes: Annual Retina Eye Exam 08/06/2024 08/07/2023 Diabetes: Annual Foot Exam 10/01/2024 10/02/2023 Influenza Vaccine (#1) 2024 , 10/19/2022, 01/25/2022, Additional history exists Diabetes: Blood Sugar Control Test (HGBA1C) 12/22/2024 06/21/2024, 01/09/2024, 09/28/2023, Additional history exists Diabetes: Annual GFR (Glomerular Filtration Rate) 10/02/2025 10/02/2024, 08/23/2024, 08/19/2024, Additional history exists Hypertension/CHF/CAD Annual BMP Blood Test 10/02/2025 10/02/2024, 08/23/2024, 08/19/2024, Additional history exists Cholesterol Screening (Lipid Panel) 06/21/2029 06/21/2024, 05/26/2023 DTaP,Tdap,and Td Vaccines (3 - Td or Tdap) 09/26/2032 09/26/2022, 05/22/2002 Pneumococcal Vaccine: 50+ Years Completed 05/26/2022, 04/29/2008 Hepatitis C Screening Completed 02/17/2023 HIB Vaccines Aged Out No longer eligi ble based on patient's age to complete this topic HPV Vaccines Aged Out No longer eligi ble based on patient's age to complete this topic Hepatitis A Vaccines Aged Out No long er eligible based on patient's age to complete this topic Hepatitis B Vaccines Aged Out No long er eligible based on patient's age to complete this topic IPV Vaccines Aged Out No longer eligi ble based on patient's age to complete this topic MMR Vaccines Aged Out No longer eligi ble based on patient's age to complete this topic Meningococcal ACWY Vaccine Aged Out N o longer eligible based on patient's age to complete this topic Meningococcal B Vaccine Aged Out No l onger eligible based on patient's age to complete this topic RSV Immunization Patients Under 20 months Aged Out No longer eligible based on patient's age to complete this topic Varicella Vaccines Aged Out No longer eligible based on patient's age to complete this topic Procedures Procedure Name Priority Date/Time Associated Diagnosis Comments TRANSTHORACIC ECHOCARDIOGRAM (TTE) COMPLETE Routine 10/04/2024 7:29 AM EDT Dilated cardiomyopathy (CMS/HCC V24, CMS/HCC V28) BASIC METABOLIC PANEL Routine 10/02/2024 3:20 PM EDT Chest discomfort Abnormal findings on diagnostic imaging of heart and coronary circulation BASIC METABOLIC PANEL Routine 08/23/2024 8:30 AM EDT Hyperkalemia BASIC METABOLIC PANEL Routine 08/19/2024 9:31 AM EDT Essential hypertension, benign Type 2 diabetes mellitus with diabetic neuropathy, without long-term current use of insulin (CMS/HCC V24, CMS/HCC V28) CKD (chronic kidney disease) stage 2, GFR 60-89 ml/min Dilated cardiomyopathy (CMS/HCC V24, CMS/HCC V28) Chronic systolic congestive heart failure (CMS/HCC V24, CMS/HCC V28) BASIC METABOLIC PANEL Routine 08/12/2024 8:59 AM EDT Dilated cardiomyopathy (CMS/HCC V24, CMS/HCC V28) HEMOGLOBIN A1C Routine 06/21/2024 8:18 AM EDT Type 2 diabetes mellitus with diabetic neuropathy, without long-term current use of insulin ([facility]/HCC V24, CMS/HCC V28) LIPID PANEL WITH REFLEX TO DIRECT LDL Routine 06/21/2024 8:18 AM EDT Pure hypercholesterolemia DIABETES FOOT EXAM Routine 10/02/2023 DIABETES EYE EXAM Routine 08/07/2023 DEPRESSION SCREENING Routine 03/01/2023 FALLS RISK ASSESSMENT Routine 03/01/2023 HEPATITIS C SCREENING Routine 02/17/2023 URINE ALBUMIN CREATININE RATIO Routine 02/17/2023 from Last 3 Months or Most Recently Relevant to Health Maintenance Results * (ABNORMAL) TRANSTHORACIC ECHOCARDIOGRAM (TTE) COMPLETE (10/04/2024 7:29 AM EDT) LV EDV (A2C) 93 mL CV PACS LV EDV (A4C) 107 mL CV PACS LV Diastolic Volume (BP) 100 62 - 150 mL CV PACS LV ESV (A2C) 57 mL CV PACS LV ESV (A4C) 59 mL CV PACS LV Systolic Volume (BP) 60 21 - 61 mL CV PACS IVSD 0.9 0.6 - 1.0 cm CV PACS LVIDD 4.4 4.2 - 5.8 cm CV PACS LVIDS 3.5 2.5 - 4.0 cm CV PACS LVOT Diameter 2.3 cm CV PACS LVOT Mean [place]une[place] 0.6 m/s CV PACS LVOT Mean Grad 2 mmHg CV PACS LVOT Peak VTI 15.6 cm CV PACS LVOT Peak [place] 0.9 m/s CV PACS LVOT Peak Gradient 3 mmHg CV PACS LVPWD 1.0 0.6 - 1.0 cm CV PACS MV E' Tissue Velocity Lateral 7 cm/s CV PACS MV E' Tissue Velocity Septal 6 cm/s CV PACS Ejection Fraction (A2C) 38 % CV PACS Ejection Fraction (A4C) 45 % CV PACS Ejection Fraction (BP) 40 % CV PACS LVOT Area 4.2 cm2 CV PACS LVOT Stroke Volume 65 mL CV PACS Left Atrium Minor [place] 4.9 cm CV PACS Left Atrium Major [place] 5.0 cm CV PACS LA Area Sys (A2C) 15 cm2 CV PACS LA Area Sys (A4C) 16 cm2 CV PACS LA Volume (BP) 39 mL CV PACS RA Area 11.6 cm2 CV PACS RA 2D Volume 22 mL CV PACS Aortic Root 3.7 cm CV PACS Ascending Aorta 3.7 cm CV PACS IVC Proximal 1.2 cm CV PACS IVC Proximal 0.5 cm CV PACS E Wave Deceleration Time 102(A) 119 - 242 ms CV PACS MV Peak A [place] 1.07 m/s CV PACS MV Peak E [place] 0.58 m/s CV PACS PV Acceleration Time 71 ms CV PACS PV Acceleration Time 71 ms CV PACS RV Diastolic Basal Dimension 3.0 2.5 - 4.1 cm CV PACS RV S' 14 cm/s CV PACS TAPSE 26 mm CV PACS TR Peak Velocity 1.95 m/s CV PACS TR Peak Gradient 15 mmHg CV PACS E/E' Ratio Septal 10 CV PACS E/E' Ratio Averaged 9 CV PACS Relative Wall Thickness ratio 0.45 CV PACS FS 20 % CV PACS LV Mass 2D 138 g CV PACS LVOT flow 249 mL/s CV PACS E/A Ratio 0.5 CV PACS E/E' Ratio Lateral 8 CV PACS BSA 1.85 m2 CV PACS LV Diastolic Volume Index (BP) 55 34 - 74 mL/m2 CV PACS LV Systolic Volume Index (BP) 33(A) 11 - 31 mL/m2 CV PACS LV EDV Index (A4C) 58 mL/m2 CV PACS LV ESV Index (A4C) 32 mL/m2 CV PACS LV EDV Index (A2C) 51 mL/m2 CV PACS LV ESV Index (A2C) 31 mL/m2 CV PACS LA Volume Index (BP) 21 mL/m2 CV PACS LVIDD Index 2.40 cm/m2 CV PACS LVIDS Index 1.91 cm/m2 CV PACS LV Mass Index 2D 75 50 - 102 g/m2 CV PACS LVOT Stroke Index 36 mL/m2 CV PACS RA 2D Volume Index 12(A) 18 - 32 mL/m2 CV PACS Aortic Root Index 2.02 cm/m2 CV PACS Ascending Aorta Index 2.02 cm/m2 CV PACS Anatomical Region Laterality Modality Ultrasound Narrative 10/04/2024 3:01 PM EDT Left ventricle cavity size is normal. Wall thickness is normal. Systolic function is mildly decreased. The quantitative EF by 2D Handley biplane is 40% No hemodynamically significant valvular dysfunction Compared to the report of a prior study from 2024 from outside facility, the LV systolic function has somewhat improved Left Ventricle Left ventricle cavity size is normal. Wall thickness is normal. Systolic function is mildly decreased. The quantitative EF by 2D Handley biplane is 40%. There are no regional LV wall motion abnormalities. There is Grade II (moderate) diastolic dysfunction. Right Ventricle Right ventricle cavity appears normal. Systolic function is normal. Left Atrium Left atrium cavity size is normal. Right Atrium Right atrium cavity is small. IVC/SVC Inferior vena cava structure is normal. RA pressures is estimated to be 3 mmHg (IVC diameter <21 mm and decreases >50% during inspiration). Mitral Valve The leaflets are mildly thickened. There is mild annular calcification. There is trace regurgitation. There is no significant stenosis noted. Tricuspid Valve Tricuspid valve structure is normal. Tricuspid regurgitation is inadequate for estimation of right ventricular systolic pressure. There is no significant tricuspid valve stenosis. Aortic Valve The aortic valve is trileaflet. The leaflets are mildly thickened and exhibit normal excursion. There is no regurgitation or stenosis. Pulmonic Valve The pulmonic valve was not well visualized. No significant pulmonic valve regurgitation. No significant pulmonary valve stenosis noted. Ascending Aorta The aorta appears normal in size. Pericardium Pericardium appears normal. There is no pericardial effusion. Study Details Overall the study quality was adequate. us Marcos Crum NP CV ECHO PROCEDURES Final Re sult * (ABNORMAL) Basic metabolic panel (10/02/2024 3:20 PM EDT) Only the most recent of4 resultswithin the time period is included. Sodium 139 133 - 145 mmol/L LAB CHEMISTRY METHOD 10/02/2024 5:58 PM [facility] Potassium 5.4 3.5 - 5.5 mmol/L LAB CHEMISTRY METHOD 10/02/2024 5:58 PM [facility] Chloride 108 96 - 110 mmol/L LAB CHEMISTRY METHOD 10/02/2024 5:58 PM [facility] CO2 27 21 - 32 mmol/L LAB CHEMISTRY METHOD 10/02/2024 5:58 PM [facility] Anion Gap 4 3 - 11 LAB CHEMISTRY METHOD 10/02/2024 5:58 PM [facility] Glucose 199(H) 70 - 100 mg/dL LAB CHEMISTRY METHOD 10/02/2024 5:58 PM [facility] BUN 31(H) 5 - 25 mg/dL LAB CHEMISTRY METHOD 10/02/2024 5:58 PM [facility] Creatinine 1.34(H) 0.70 - 1.30 mg/dL LAB CHEMISTRY METHOD 10/02/2024 5:58 PM [facility] eGFR 54(L) >=60 mL/min/1. 73m2 LAB CHEMISTRY METHOD 10/02/2024 5:58 PM [facility] Comment:Calculation based on the Chronic Kidney Disease Epidemiology Collaboration (CKD-EPI) equation refit without adjustment for race. BUN/Creatinine Ratio 23.1 LAB CHEMISTRY METHOD 10/02/2024 5:58 PM [facility] Calcium 9.2 8.5 - 10.5 mg/dL LAB CHEMISTRY METHOD 10/02/2024 5:58 PM [facility] Blood Venous blood specimen / Unknown 10/02/2024 3:20 PM EDT 10/02/2024 3:20 PM EDT us Marcos Crum NP LAB BLOOD ORDERABLES Final Result [facility] [address] [place] [address], [place] [phone] * (ABNORMAL) Lipid panel with reflex to direct LDL (06/21/2024 8:18 AM EDT) Cholesterol 104 0 - 200 mg/dL LAB CHEMISTRY METHOD 06/21/2024 11:09 AM EDT [facility] Triglycerides 77 0 - 150 mg/dL LAB CHEMISTRY METHOD 06/21/2024 11:09 AM EDT [facility] HDL 37(L) >=40 mg/dL LAB CHEMISTRY METHOD 06/21/2024 11:09 AM EDT [facility] LDL Calculated 52 0 - 100 mg/dL LAB CHEMISTRY METHOD 06/[facility]24 [facility] VLDL Cholesterol [place] 15.4 mg/dL LAB CHEMISTRY METHOD 06/21/2024 11:09 AM EDT [facility] Non HDL Chol. (LDL+VLDL) 67 <145 mg/dL LAB CHEMISTRY METHOD 06/21/2024 11:09 AM EDT [facility] Chol/HDL Ratio 2.8 0.0 - 4.4 LAB CHEMISTRY METHOD 06/21/2024 11:09 AM [facility] Blood Venous blood specimen / Unknown Venipuncture / Unknown 06/21/2024 8:18 AM EDT 06/21/2024 8:18 AM EDT Amanda Castro MD LAB BLOOD ORDERABLES Final Resul t [facility] [address] [place] [address], [place] [phone] * (ABNORMAL) Hemoglobin A1c (06/21/2024 8:18 AM EDT) Hemoglobin A1C 7.0(H) <6.5 % LAB CHEMISTRY METHOD 06/21/2024 12:01 PM EDT [facility] Mean Bld Glu Estim. 154 mg/dL LAB CHEMISTRY METHOD 06/21/2024 12:01 PM EDT [facility] Blood Venous blood specimen / Unknown Venipuncture / Unknown 06/21/2024 8:18 AM EDT 06/21/2024 8:18 AM EDT Amanda Castro MD LAB BLOOD ORDERABLES Final Resul t [facility] [address] [place] [address], [place] [phone] * Diabetes Foot Exam (10/02/2023) [facility] Diabetes: Annual Foot Exam abstracted Result [facility] Provider HEALTH MAINTENANCE Final Result * Diabetes Eye Exam (08/07/2023) [facility] Diabetes: Annual Retina Eye Exam abstracted Result [facility] Historical Provider HEALTH MAINTENANCE Final Result * Falls Risk Assessment (03/01/2023) [facility] Falls Risk Assessment abstracted Result [facility] Provider HEALTH MAINTENANCE Final Result * Depression Screening (03/01/2023) [facility] Depression Screening abstracted Result [facility] Provider HEALTH MAINTENANCE Final Result * Urine Albumin Creatinine Ratio (02/17/2023) [facility] Urine Albumin Creatinine Ratio abstracted Result [facility] Historical Provider HEALTH MAINTENANCE Final Result * Hepatitis C Screening (02/17/2023) [facility] Hepatitis C Screening abstracted Result [facility] Historical Provider HEALTH MAINTENANCE Final Result from Last 3 Months or Most Recently Relevant to Health Maintenance Insurance [employer] Care Teams Wastewater Treatment Operator Relationship Specialty Start Date End Date Amanda Castro MD [address] [place] [address] PCP - General 10/04/1993
--- OUTSIDE RECORDS SUMMARY | 2024-10-18 07:52 | XMS_ITS | Clinical Summary ---
Author Organization [facility] Address [address] [address] Phone Care Team Providers Care Cannoneer Name Role Phone Pcp, Unknown Primary Care Provider Unavailabl e Allergies No known active allergies Medications atorvastatin (LIPITOR) 20 MG tablet Take 20 mg by mouth daily. Active aspirin 81 mg chewable tablet Take 81 mg by mouth daily. Active albuterol 90 mcg/actuation inhaler Inhale 2 puffs into the lungs every 6 (six) hours as needed for wheezing. Active clobetasol (TEMOVATE) 0.05 % cream Apply topically 2 (two) times a day. Active fluorouraciL (EFUDEX) 5 % cream Apply topically 2 (two) times a day. Active fluticasone propionate (FLONASE) 50 mcg/actuation nasal spray 1 spray by Nasal route daily. Active glipiZIDE (GLUCOTROL) 2.5 MG 24 hr tablet Take 2.5 mg by mouth daily. Active lisinopril (PRINIVIL,ZESTRIL ) 5 MG tablet Take 2.5 mg by mouth daily. Active meclizine (ANTIVERT) 25 MG tablet Take 25 mg by mouth 3 (three) times a day as needed. Active metFORMIN (GLUCOPHAGE) 850 MG tablet Take 850 mg by mouth 3 (three) times a day. Active therapeutic multivitamin tablet Take 1 tablet by mouth daily. Active potassium citrate (UROCIT-K) 10 mEq SR tablet Take 10 mEq by mouth 3 (three) times a day with meals. Active tamsulosin (FLOMAX) 0.4 mg Cap Take 0.4 mg by mouth daily. Active triamcinolone acetonide 0.1 % cream Apply topically daily. Active cephalexin (KEFLEX) 500 MG capsule Take 1 capsule (500 mg total) by mouth 3 (three) times a day. Next dose at 9 PM 3 capsule 03/22/202 1 Active Active Problems Problem Noted Date Diagnosed Date Left ureteral stone 04/27/2020 Hydronephrosis, left 04/27/2020 Social History Tobacco Use Types Packs/Day Years Used Date Smoking Tobacco: Former Cigarettes Q uit: 04/28/1979 Smokeless Tobacco: Never Alcohol Use Standard Drinks/Week Comments Yes 0 (1 standard drink = 0.6 oz pur e alcohol) occasioanlly Education Answer Date Recorded Are you interested in more education? Not on derrick e 06/03/2022 Are you concerned about learning? Not on file 06/03/2022 No 06/03/2022 No 06/03/2022 Digital Access Answer Date Recorded No 07/02/2022 No 07/02/2022 No 07/02/2022 Reliable internet access at home? Not on file 07/02/2022 Device with a working camera? Not on file Sex and Gender Information Value Date Recorded Sex Assigned at Not on file Legal Sex Male 8:44 PM EDT Gender Identity Not on file Sexual Orientation Not on file Last Filed Vital Signs Vital Sign Reading Time Taken Comments Blood Pressure 173/73 04/27/2020 3:50 PM EDT Pulse 90 04/27/2020 3:29 PM EDT Temperature 36.5 C (97.7 F) 04/27/2020 3:31 PM EDT Respiratory Rate 18 04/27/2020 3:29 PM EDT Oxygen Saturation 96% 04/27/2020 3:50 PM EDT Inhaled Oxygen Concentration - - Weight 77.1 kg (170 lb) 04/27/2020 12:05 PM EDT Height 170.2 cm (5' 7 ) 04/27/2020 12:05 PM EDT Body Mass Index 26.63 04/27/2020 12:05 PM EDT Plan of Treatment Health Maintenance Due Date Last Done Comments LIPID PANEL 1945 DEPRESSION SCREENING 1957 SMOKING Hx and SMOKELESS TOBACCO SCREENING 1958 HEPATITIS C SCREENING 1963 ZOSTER VACCINES (1 of 2) 1995 PNEUMOCOCCAL VACCINES (50+ years) (2 of 2 - PCV) 04/29/2009 04/29/2008 Adult Td,Tdap Booster 05/22/2012 05/22/2002 RSV VACCINE (1 - 1-dose 75+ series) 01/31/2020 CREATININE LEVEL 04/27/2021 04/27/2020 POTASSIUM LEVEL 04/27/2021 04/27/2020 INFLUENZA VACCINE (#1) 2024 0, 10/20/2017, 10/31/2016, Additional history exists COVID-19 VACCINE ( season) 2024 04/06/2020, 03/16/2020 HEPATITIS A VACCINES Aged Out No long er eligible based on patient's age to complete this topic HIB VACCINES Aged Out No longer eligi ble based on patient's age to complete this topic MENINGOCOCCAL VACCINES (ACWY) Aged Out No longer eligible based on patient's age to complete this topic MENINGOCOCCAL VACCINES (B) Aged Out N o longer eligible based on patient's age to complete this topic Medical Devices Implanted Type Area Bobcat Driver/Labor Device Identifier Shelf Expiration Date Model / Serial / Lot Prosthetic Joint Right Knee Prosthetic Joint Prosthetic Joint Left Knee Prosthetic Joint Stent Ureteral 6fr 22 To 30cm Stretch Coated Kaley - [id number] Implanted:Qty : 1 on 04/27/2020 by Alexis Abrams MD at [facility] Left: Ureter [employer] 12/19/2022 [id number] / / [id number] Procedures Procedure Name Priority Date/Time Associated Diagnosis Comments BASIC METABOLIC PANEL STAT 04/27/2020 12:39 PM EDT from Last 3 Months or Most Recently Relevant to Health Maintenance Results * (ABNORMAL) Basic metabolic panel (04/27/2020 12:39 PM EDT) SODIUM 139 133 - 146 mmol/L [facility] CHLORIDE 100 96 - 108 mmol/L [facility] POTASSIUM 4.9 3.3 - 5.1 mmol/L [facility] CO2 28 21 - 35 mmol/L [facility] BUN 24(H) 6 - 19 mg/dL [facility] CREATININE 1.40 0.5 - 1.5 mg/dL [facility] GLUCOSE 131(H) 70 - 99 mg/dL [facility] CALCIUM 9.5 8.4 - 10.3 mg/dL [facility] EGFR 49(L) >59 mL/min/1.7 3m2 [facility] Comment:Estimated glomerular filtration rate calculated using the CKD-EPI equation. ANION GAP 16 10 - 20 mmol/L [facility] Blood 04/27/2020 12:3 9 PM EDT 04/27/2020 12:57 PM EDT us Alexis Abrams MD LAB BLOOD ORDERABLES Final Res ult [address] [address] from Last 3 Months or Most Recently Relevant to Health Maintenance Insurance [employer]ACEMENT [employer] [place] [employer]ACEMENT [employer] [place] [employer] RE[employer]ACEMENT [employer] [place] [employer] REPLACEMENT [employer] [place] [employer] REPLACEMENT [employer] [place] [employer] H[employer] REPLACEMENT [employer] [place] [employer] H[employer] REPLACEMENT [employer]ACEMENT Care Teams Cannoneer Relationship Specialty Start Date End Date Pcp, Unknown PCP - General 04/25/20 Additional Source Comments The information contained in this document represents components of the legal health record. It is not the complete legal health record.[facility]
--- OUTSIDE RECORDS SUMMARY | 2024-10-18 07:52 | XMS_ITS | Encounter Summary ---
Author Organization [facility] Address [address] [place] [address] Care Team Providers Care Tank Car Repairer Name Role Phone Amanda Castro MD Primary Care Provider [phone] Encounter Details Date Type Department Care Team (Late Contact Info) Description 07/04/2024 Hospital Encounter [facility] Cardiac Agricultural Equipment Sales Engineer [address] [place] [phone] Morris Nj MD [address] [place] [address] Dr [address] [place] [phone] Social History Tobacco Use Types Packs/Day Years Used Date Smoking Tobacco: Former Cigarettes Q uit: 12/07/2004 Smokeless Tobacco: Never Alcohol Use Standard Drinks/Week Comments Yes 0 (1 standard drink = 0.6 oz pur e alcohol) Sex and Gender Information Value Date Recorded Sex Assigned at Not on file Legal Sex Male 12:02 PM EST Gender Identity Not on file Sexual Orientation Not on file documented as of this encounter Plan of Treatment Upcoming Encounters Date Type Department Care Team (Late Contact Info) Description 06/11/2025 2:00 PM EDT Office Visit Nephrology - [place] [address] [place] [address] Robinson Menendez MD [address] [facility] [address] [place] [address] documented as of this encounter Visit Diagnoses Not on filedocumented in this encounter Admitting Diagnoses Diagnosis Dilated cardiomyopathy (CMS/HCC V24, CMS/HCC V28) Other primary cardiomyopathies documented in this encounter Care Teams Tank Car Repairer Relationship Specialty Start Date End Date Amanda Castro MD [address] [place] [address] PCP - General 10/04/1993 documented as of this encounter
--- NOTE | 2024-10-18 07:58 | MHC.OFFWIV ---
Intake Vital Signs 10/18/24 07:59 Height 5 ft 7 in Weight 163 lb BMI 25.5 BP 110/60 Blood Pressure Location Lt brachial Position Sitting Respiration 15 Pulse 79 Pulse Source Pulse Oximeter Temp 97.5 F Temp Source Oral Pulse Oximetry (%) 99 Oxygen Delivery Method Room Air Intake Visit Reasons: EP LT eye irritation Intake Note: Pt is here today c/o Lt eye irritation Patient Tobacco Use Status: Former Tobacco user Allergies No Known Allergies (No Known Allergies*) Allergy (Verified 10/18/24 08:00) HPI HPI Comments History of Present Illness Details This is a 79-year-old male presenting for evaluation of left eye irritation that he has had for the past 2 days. Patient reports a foreign body sensation with discomfort when he moves his left eye but denies having any visual changes, discharge, fevers or chills. Patient's websphere process server developer is Dr. Roger. Patient has not used any OTC eyedrops for relief of his discomfort. [facility]LY [facility], [facility] Medical History COVID-19 Stroke Kidney stone Diabetes Social History Alcohol intake: never Patient Tobacco Use Status: Former Tobacco user Review of Systems Const All systems reviewed & are unremarkable except as noted in HPI and below Reports as per HPI, Denies chills and Denies fever(s) Eyes Reports as per HPI, Denies blurry vision, Denies change in vision, Denies diplopia, Denies eye discharge, Reports irritation (OS), Reports requires corrective lenses, Denies seeing flashes, Denies photophobia and Denies spots in vision ENT Reports no additional complaints Neuro Reports no additional complaints Psych Reports no additional complaints Aller/Immun Reports no additional complaints Physical Exam Vital Signs: Last Vital Signs Temp 97.5 F 10/18/24 07:59 Pulse 79 10/18/24 07:59 Resp 15 10/18/24 07:59 BP 110/60 10/18/24 07:59 Pulse Ox 99 10/18/24 07:59 Oxygen Delivery Method Room Air 10/18/24 07:59 BMI result Body Mass Index 25.5 Const General: cooperative, healthy appearing, comfortable, no acute distress, well developed, alert, awake and Physically active; No acute distress or tired appearing Nutritional Appearance: average body habitus Orientation/consciousness: patient oriented x3 Limitations: no limitations HEENT Head: Yes normal to inspection Ears: hearing grossly normal bilaterally General nose exam: Normal external nose present Face and sinus: Yes normal facial exam Eyes Visual Post: normal visual post by confrontation Alignment and Position: alignment normal Periorbital: periorbital findings normal Eyelids: Yes eyelids normal Conjunctivae: conjunctival abnormal (injected OS) left conjunctival injection; Negative for conjunctival icterus, without chemosis, without discharge, without pallor, without pterygia and without subconjunctival hemmorhages Sclerae: scleral abnormal left (corneal abrasion by fluorescein stain 3 o'clock position overlying sclera OS) Corneas: corneas normal Pupils: Equal, round and reactive pupils present, Pupils normal by confrontation and Pupil accommodation reflex normal EOM: EOMs intact bilaterally Direct Ophthalmoscopy: no photophobia and No photophobia Neuro General: patient oriented x3 Cranial nerves: Yes Equal, round and reactive pupils present Psych Appearance: grossly normal Mental Status: mental status grossly normal Insight: Good insight present (Psych) Judgement: Good judgement present (Psych) Office Procedures Fluorescein eye exam Details: OS sclera abrasion at the 3 o'clock position; no evidence of a retained foreign body or hordeolum Assessment & Plan Assessment & Plan (1) Abrasion of sclera of left eye: Comment: Erythromycin antibiotic ointment will be prescribed given the presence of a scleral abrasion OS. Code(s): S05.8X2A - Other injuries of left eye and orbit, initial encounter Qualifiers: Encounter type: initial encounter Qualified Code(s): S05.8X2A - Other injuries of left eye and orbit, initial encounter Plan: Erythromycin antibiotic ointment q.i.d. x5 days, patient will follow up with his websphere process server developer as an outpatient within 3-5 days. Medications: New erythromycin 1 appl ophthalmic-Left QID 3.5 grams 0RF 5 days Coding Level of Care Code Est Pt Level 3 (87654) Diagnoses Abrasion of sclera of left eye, initial encounter S05.8X2A Encounter type: initial encounter Time Spent (min) 20
[2024-10-18 07:59] VITALS: BP 110/60; PULSE 79; RESP 15; TEMP 36.4; O2SAT 99; BMI 25.5
== END 2024-10-18 08:45 | disposition home or self-care (01) ==
PROVIDERS: PCP Internal Medicine; Visit Provider Physician Assistant
DX: S05.8X2A Other injuries of left eye and orbit, initial encounter (principal)

== ENCOUNTER → 2024-10-18 07:50 | Outpatient (BNVA) | payer MEDICARE, SELFPAY | PROVIDERS: PCP Internal Medicine; Visit Provider Physician Assistant | DX: S05.8X2A Other injuries of left eye and orbit, initial encounter (principal); X58.XXXA Exposure to other specified factors, initial encounter; Y93.9 Activity, unspecified; Y92.9 Unspecified place or not applicable; Y99.9 Unspecified external cause status | CPT/HCPCS: 99212 ==